=== PATIENT | male | born 1930 | race Caucasian/White ===

== ENCOUNTER 2016-09-27 07:20 | Day surgery (SDC) | payer OTHER ==
[2016-09-27] MEDS ORDERED: LR 1,000 ML ONE ×2 (07:34→08:36)
[2016-09-27] MEDS ORDERED: KEFZOL 1 GM/D5W 50 ML ONE (07:34)
[2016-09-27] MEDS ORDERED: PEPCID ONE (07:34)
[2016-09-27] MEDS ORDERED: GLUCAGON ONE (08:35)
[2016-09-27] MEDS ORDERED: MARCAINE 0.25% PF/EPI 1:200,000 ONE (08:36)
[2016-09-27] MEDS ORDERED: SODIUM CHLORIDE 0.9% ONE (08:36)
[2016-09-27] MEDS ORDERED: FENTANYL ONE (11:21)
[2016-09-27] MEDS ORDERED: DIPRIVAN 1% ONE (11:22)
[2016-09-27] MEDS ORDERED: ROBINUL ONE (11:27)
[2016-09-27] MEDS ORDERED: NEOSTIGMINE ONE (11:27)
[2016-09-27] MEDS ORDERED: QUELICIN (DOSE) ONE (11:27)
[2016-09-27] MEDS ORDERED: XYLOCAINE-MPF 2% ONE (11:27)
[2016-09-27] MEDS ORDERED: NORCURON ONE (11:27)
[2016-09-27] MEDS ORDERED: LABETALOL (DOSE) ONE (11:27)
[2016-09-27] MEDS ORDERED: ZOFRAN ONE (11:27)
--- NOTE | 2016-09-27 11:29 | Diag Imaging Result Document ---
PROCEDURE NAME: OPERATIVE CHOLANGIOGRAM - 09/27/2016 INTRAOPERATIVE CHOLANGIOGRAM: FINDINGS: The common bile duct is normal in caliber and there are no apparent filling defects. IMPRESSION: No evidence of retained stones or obstruction.
[2016-09-27] MEDS ORDERED: LR 500 ML ONE (11:50)
[2016-09-27] MEDS: MORPHINE ONE ×4 (11:50→12:19)
[2016-09-27] MEDS ORDERED: LABETALOL ONE (11:53)
--- NOTE | 2016-09-27 11:53 | OPERATIVE NOTE ---
PROCEDURE DATE: 09/27/2016 PREOPERATIVE DIAGNOSIS: Symptomatic cholelithiasis. POSTOPERATIVE DIAGNOSIS: Chronic calculous cholecystitis. PROCEDURE PERFORMED: Laparoscopic cholecystectomy with operative cholangiogram. SURGEON: Hema Stanton MD ANESTHESIA: General. ESTIMATED BLOOD LOSS: 10 mL. COMPLICATIONS: None apparent. SPECIMENS: Gallbladder. FINDINGS: The gallbladder was obviously chronically inflamed with a thickened wall. The gallbladder was packed with stones. The cholangiogram revealed normal proximal hepatic radicles and distal common bile duct. There was flow of contrast into the duodenum. No filling defects or stenoses were appreciated. TECHNIQUE: He was brought to the operating room and placed supine on the table. General anesthesia was induced. He was prepped and draped in the usual sterile fashion. Marcaine 0.25% with epinephrine was used to anesthetize the skin incisions. An 11 mm incision was made just above the umbilicus. The fascia was exposed and incised sharply. Entry into the peritoneal cavity was obtained under direct vision with the Optiview device. A pneumoperitoneum was established. The camera was inserted. There was no evidence of injury to underlying structures. He was placed in reverse Trendelenburg and left rotation. Three 5 mm incision and ports were placed in the epigastric and right upper quadrant below the costal margin per usual routine. The dome of the gallbladder was grasped and lifted up superiorly. Omental adhesions to the wall of the gallbladder were taken down bluntly. The gallbladder was lifted up superiorly with the liver. Then, using a [place] forceps and hook cautery, I dissected out the triangle of Calot until the critical view was obtained. The gallbladder liver junction was seen. There were only 2 structures entering the gallbladder, the cystic duct and cystic artery. The cystic artery was clipped proximally and distally and incised in between with scissors the cystic duct was clipped distally. A ductotomy was made proximal to this with scissors. A 14-gauge Angiocath was passed through the right upper quadrant. The Taut cholangiogram catheter was passed through this into the cystic duct and held in place with a clip. The cholangiogram was then performed with findings as noted above. The clip, catheter, and Angiocath were then removed. The cystic duct was then clipped twice proximally and divided with scissors in between the clips. The gallbladder was taken off the liver bed using hook cautery, obtaining hemostasis along the way. The back wall was quite inflamed and very adherent to the liver surface. I did enter the gallbladder in 1 location with hook cautery. A few very small stones spilled out. The gallbladder was packed with stones. I continued to remove the gallbladder off the liver bed with cautery until it was completely detached. I then placed it in an EndoCatch bag. We then irrigated copiously with saline in our dissection area and Clayton's pouch and over the liver. I suctioned out the irrigant, the old blood and the stones. There were no signs of any further bleeding or bile leakage. The gallbladder and bag were brought up into the umbilical port site. The abdomen was desufflated. The ports were removed. The fascia was incised, about a centimeter in length, with scissors to allow the gallbladder to be removed. I then closed the umbilical fascia with a running 0 Vicryl. The skin was closed with running 4-0 subcuticular Monocryl and Steri-Strips. There were no complications. He was awakened in stable condition and transferred to the recovery room.
[2016-09-27] MEDS ORDERED: APRESOLINE ONE (13:27)
[2016-09-27] MEDS ORDERED: NORCO-10 PO PRN (14:07)
[2016-09-27] MEDS ORDERED: ZOFRAN IV PRN (14:07)
[2016-09-27 14:20] VITALS: BP 151/66
== END 2016-09-27 14:21 | disposition home or self-care (01) ==
LOC: OR 07:20
PROVIDERS: ATTEND Surgery
DX: K80.10 Calculus of gallbladder with chronic cholecystitis without obstruction (principal)
CPT/HCPCS: 74300; 82948; J0330; J0360; J0690; J1610; J2270; J2405; J3010; J7120; J2710; S0020